=== PATIENT | male | born 1945 | race Caucasian/White ===

== ENCOUNTER 2019-04-04 08:17 | Day surgery (SDC) | payer OTHER ==
[2019-04-03 14:27] VITALS: BMI 32.8
[2019-04-04] MEDS ORDERED: MIDAZOLAM HCL 2 MG/2 ML SINGLE DOSE VIAL ONE (10:42)
[2019-04-04] MEDS ORDERED: PROPOFOL 20 ML ONE ×3 (10:45→12:41)
[2019-04-04] MEDS ORDERED: EPHEDRINE SULFATE/0.9% NACL/PF 50 MG/10 ML SYRINGE NR ONE ×2 (11:32→12:44)
[2019-04-04] MEDS ORDERED: ONDANSETRON 4 MG/2 ML VIAL IVPUSH PRN (11:58)
[2019-04-04] MEDS ORDERED: oxyCODONE HCL 5 MG TABLET PO PRN (11:58)
[2019-04-04] MEDS ORDERED: LACTATED RINGERS SOLUTION 1,000 ML IV SCH (12:00)
[2019-04-04] MEDS ORDERED: DEXAMETHASONE SOD PHOSPHATE 4 MG/1 ML VIAL ONE (12:04)
[2019-04-04] MEDS ORDERED: ACETAMINOPHEN 325 MG TABLET (FP) PO PRN (13:04)
[2019-04-04] MEDS ORDERED: ACETAMINOPHEN INJECTION 100 ML IVPB ONE (13:09)
--- NOTE | 2019-04-04 13:13 | OP ---
Operative Note - Note: Operative Date: 04/04/19 Pre-Operative Diagnosis: bph with luts, hematuria,rec. uti, rt. hydronephrosis Operation: cysto, attempted rt. retrograde,cystolaserlithotripsy and fulgeration of bleeding bladder neck and mac placement Findings: LARGE BLADDER STONE (3-4CM),OBSTRUCTING PROSTATE GLAND, TRABECULATED BLADDER AND A BLADDER DIVERTICULUM, RT. HYDRONEPHROSIS Post-Operative Diagnosis: Same as Pre-op Community Education Specialist: Srini Becerra Anesthesia: General Specimens Removed: URINE, BLADDER STONES Estimated Blood Loss (mls): 10 Drains & Tubes with Location: 20F 10CC MAC Drains, Volume Out (mls): 0 Blood Volume Replaced (mls): 0 Fluid Volume Replaced (mls): 0 Operative Report Dictated: Yes
[2019-04-04] MEDS ORDERED: ACETAMINOPHEN 1000 MG/100 ML VIAL (NON FORMULARY) IVPB ONE (13:22)
--- NOTE | 2019-04-04 15:44 | OP ---
DATE OF OPERATION: 04/04/2019 PREOPERATIVE DIAGNOSES: Right hydronephrosis, hematuria, prostatism. POSTOPERATIVE DIAGNOSES: Benign prostatic hypertrophy, trabeculated bladder, large bladder stone, right hydronephrosis. OPERATIVE PROCEDURES: Cystourethroscopy, cystoscopic laser lithotripsy with stone basketing, attempted retrograde pyelogram. ANESTHESIA: General. PROCEDURE IN DETAIL: Under above-stated anesthesia, patient was prepped and draped in the usual sterile manner. He was placed in the dorsal lithotomy position. A continuous-flow, 30-degree scope was introduced under direct vision. Anterior urethra was within normal limits. Prostatic urethra revealed trilobar hypertrophy of the prostate. There was lateral lobe kissing. Prostatic urethra measured 6 cm in length. The bladder was entered. Residual urine of 1000 mL was drained. This was sent for C and S, as well as cytology. Inspection of the bladder revealed a 3-cm, yellow stone in the bladder. No other lesions were seen. The bladder revealed a grade 2-3 trabeculation. There was a bladder diverticulum in the dome. Using a 1000-holmium fiber at an energy of 2 and a rate of 15, the stone was lased into multiple fragments. An LP33.TV evacuator was used to evacuate stones. Larger fragments were retrieved with a stone basket. After the entire stone was removed, attempts at cannulating the right ureteral orifice were unsuccessful. The orifice was unable to be found. Therefore, the bladder was emptied. The scope was removed. The 20-Kittitian Menjivar was left in place. Prior to placement of the Menjivar, the bladder neck was fulgurated for hemostasis. The patient tolerated the procedure well. He returned to the recovery room in good condition. Tristin [id number]
[2019-04-04 16:03] VITALS: TEMP 97.7
--- NOTE | 2019-04-04 16:23 | CONS ---
DATE OF CONSULTATION: DATE OF DICTATION: 04/04/2019 HISTORY OF PRESENT ILLNESS: The patient is a 74-year-old male presents today for an ambulatory cystoscopy, right retrograde pyelogram, possible right laser lithotripsy with placement of a JJ stent. Patient was found to have a right hydroureteronephrosis, also was complaining of right flank pain. The patient does have history of high blood pressure, congestive heart failure, COPD, benign prostatic hypertrophy with lower urinary tract symptoms. Also has history of chronic kidney disease. He also has history of vertigo. PHYSICAL EXAMINATION: General: A well developed adult male in no apparent distress. Abdomen: Soft. Genitalia: Atraumatic. Testes are normal in size and consistency. Scrotum is slightly edematous and hyperemic. He has history of blood in the urine. An ultrasound as well as a CAT scan reveal a hydroureteronephrosis. Patient is here to undergo a cystoscopy right retrograde pyelogram, possible right laser lithotripsy and possible placement of a stent. He is on multiple medications including Norvasc, pravastatin, lisinopril, Prozac, Cardura, and tamsulosin. He is allergic to PENICILLIN. He denies ethanolism or tobacco. His latest BUN and creatinine are 42/1.8, respectively. His urine culture shows no growth. Again, patient will go for above described procedure. KANIKA WILCOX M.D. [id number]
[2019-04-04 17:16] VITALS: BP 137/67; PULSE 80
--- NOTE | 2019-04-05 14:53 | PATH ---
Surgical Pathology Report Patient Name: CHINTAN JOHNSON [facility]. Rec. #: [id number] /Age/Gender: 1945 (Age: 74) / M Account: [id number] Location: [facility] Taken: 04/04/2019 Received: 04/04/2019 Reported: 04/05/2019 Physicians: Srini Becerra M.D. Specimen(s) Received BLADDER STONE Clinical History Bladder stones Final Diagnosis BLADDER STONE, LASER LITHOTRIPSY: BLADDER CALCULI. MACROSCOPIC DIAGNOSIS. Electronically Signed Sho Rivera M.D. Gross Description Received fresh labeled "bladder stone," is a 1.5 x 0.9 x 0.4 cm aggregate of weldon-yellow, irregular to fragmented, hemorrhagic calculi. The specimen is sent for chemical analysis. /04/04/201904/04/2019
--- NOTE | 2019-04-06 16:46 | PATH ---
Cytology Non-Gynecological Report Patient Name: CHINTAN JOHNSON [facility]. Rec. #: [id number] /Age/Gender: 1945 (Age: 74) / M Account: [id number] Location: [facility] Taken: 04/04/2019 Received: 04/04/2019 Reported: 04/06/2019 Physicians: Srini Becerra M.D. Specimen(s) Received URINE VOIDED Clinical History Hematuria Final Diagnosis URINE FOR CYTOLOGY: SATISFACTORY FOR EVALUATION. NEGATIVE FOR HIGH GRADE UROTHELIAL CARCINOMA. NUMEROUS RED BLOOD CELLS, SCATTERED UROTHELIAL CELLS, AND RARE SQUAMOUS EPITHELIAL CELLS PRESENT. Electronically Signed Juan Lopes M.D. Gross Description Approximately 120 cc of cloudy yellow fluid received fresh. One cytospin prepared.
== END 2019-04-04 17:00 ==
LOC: JASU-SURG 08:17
PROVIDERS: ATTEND Urology
PROC: 0TCB8ZZ Extirpation of Matter from Bladder, Via Natural or Artificial Opening Endoscopic (ICD-10-PCS; principal; 2019-04-04 10:00)
DX: N21.0 Calculus in bladder (principal); N13.30 Unspecified hydronephrosis; N40.0 Benign prostatic hyperplasia without lower urinary tract symptoms; N32.89 Other specified disorders of bladder
CPT/HCPCS: 36415; 82360; 87086; 88300-TC; 94760; J0131